=== PATIENT | female | born 1940 | race Caucasian/White ===

== ENCOUNTER 2018-02-02 09:10 | Day surgery (SDC) | payer MEDICARE, OTHER ==
[2018-01-30 15:06] LABS: BASOPHILS # (AUTO) 0.1 X10'3 (0-0.2); BASOPHILS % (AUTO) 1.2 % (0-1); EOSINOPHILS # (AUTO) 0.3 X10'3 (0-0.9); EOSINOPHILS % (AUTO) 4.2 % (0-6); LYMPHOCYTES % (AUTO) 31.8 % (21-51); MEAN CORPUSCULAR HEMOGLOBIN 26.1 PG (27.0-31.0); MEAN CORPUSCULAR HGB CONC 32.4 % (33.0-36.5); MEAN CORPUSCULAR VOLUME 80.7 FL (78-98); MEAN PLATELET VOLUME 10.1 FL (7.4-10.4); MONOCYTES # (AUTO) 0.6 X10'3 (0-0.9); MONOCYTES % (AUTO) 8.9 % (2-12); NEUTROPHILS # (AUTO) 3.4 X10'3 (1.8-7.7); NEUTROPHILS % (AUTO) 53.9 % (42-75); PRE OP HEMATOCRIT 37.2 % (35.0-45.0); PRE OP PLATELET COUNT 298 X10'3 (140-440); RED BLOOD COUNT 4.61 X10'6 (4.20-5.60); RED CELL DISTRIBUTION WIDTH 15.1 % (11.5-14.5)
[2018-01-30 15:12] LABS: PRE OP INR 1.3 INR; PRE OP PROTIME 13.4 SECONDS (9.0-12.0)
[2018-01-30 15:19] LABS: ALBUMIN 3.4 G/DL (3.4-5.0); ALBUMIN/GLOBULIN RATIO 0.8 (1.1-1.5); ALKALINE PHOSPHATASE 86 IU/L (46-116); BLOOD UREA NITROGEN 15 MG/DL (7-18); BUN/CREATININE RATIO 22.1 (6.6-38.0); CALCIUM 9.2 MG/DL (8.5-10.1); CHLORIDE 102 MMOL/L (99-107); CREATININE 0.68 MG/DL (0.40-0.90); PRE OP ALT 25 U/L (30-65); PRE OP ANION GAP 8 (8-16); PRE OP AST 26 U/L (10-37); PRE OP BILIRUB, TOTAL 0.3 MG/DL (0.0-1.0); PRE OP GLUCOSE 98 MG/DL (70-104); PRE OP POTASSIUM 3.8 MMOL/L (3.4-5.1); PRE OP SODIUM 137 MMOL/L (135-145); TOTAL CARBON DIOXIDE 27.5 MMOL/L (24-32); TOTAL PROTEIN 7.5 G/DL (6.4-8.2); eGFR 84 ML/MIN
[2018-01-30 15:25] LABS: HEMOGLOBIN A1C 7.2 % (4.5-6.2)
[2018-02-02] VITALS (7 sets, daily range): BP systolic 111–134; BP diastolic 58–85
[~2018-02-02] VITALS: Ht 165.1 cm; Wt 85.7 kg
[~2018-02-02 09:10] MED LIST: ALPR-624 PO; CHOL400T PO; Cefazolin 2GM/50ML dext iso,osmotic IVPB IV ONE; DABI150C PO; DILT120T PO; DULO-31 PO; ESTR0.5T PO; EZET10TA26 PO; FURO40TA4 PO; LISI10TA4 PO; LYR75C PO; METF500T PO; MONT10TA21 PO; MORP-64 PO; MORP30TA6 PO; MULT1TAB74 PO; OSC500T PO; PANT40TA4 PO; PER10325T PO; ROPI0.5T2 PO; ROSU40TA PO; TIOT4MIS3 INH; albuterol 2.5 MG/3 ML nebule NEB ONE; famotidine 20mg tablet PO ONE; ringers solution, lacted 1,000 ML IV SCH
[2018-02-02] MEDS ORDERED: BUPIVAcaine/PF 2.5mg/ml (0.25%) 10ml vial ONE (10:35)
[2018-02-02] MEDS ORDERED: LIDOcaine 0.5% (5mg/ml) 50ml vial ONE (11:03)
[2018-02-02] MEDS ORDERED: fentaNYL/PF 50MCG/1 ML 2ML syringe ONE ×2 (11:08→11:33)
[2018-02-02] MEDS ORDERED: midazolam 2 mg/2 ml injection ONE (11:09)
[2018-02-02] MEDS ORDERED: propofol inj 20 ML IV ONE (11:53)
[2018-02-02] MEDS ORDERED: metoprolol tartrate 1mg/ml inj IV ONE (11:53)
[2018-02-02] MEDS ORDERED: esmolol inj. 10 ML IV ONE (11:53)
[2018-02-02] MEDS ORDERED: flumazenil 0.1 mg/ml inj. IV ONE (11:59)
[2018-02-02] MEDS ORDERED: ringers solution, lacted 1,000 ML IV SCH (12:43)
[2018-02-02] MEDS ORDERED: morphine 4 MG/ML inj SYRINge IV PRN (12:45)
[2018-02-02] MEDS ORDERED: ondansetron/PF 4mg/2ml inj IV PRN (12:45)
== END 2018-02-02 12:40 | disposition home or self-care (01) ==
LOC: PAS 09:10
PROVIDERS: ATTEND Orthopaedic Surgery Hand Surgery
DX: G56.02 Carpal tunnel syndrome, left upper limb (principal); M65.341 Trigger finger, right ring finger; M72.0 Palmar fascial fibromatosis [Dupuytren]; E11.9 Type 2 diabetes mellitus without complications; I49.8 Other specified cardiac arrhythmias; I10 Essential (primary) hypertension; I48.91 Unspecified atrial fibrillation; J44.9 Chronic obstructive pulmonary disease, unspecified; G89.29 Other chronic pain; Z99.81 Dependence on supplemental oxygen; Z87.891 Personal history of nicotine dependence; Z96.641 Presence of right artificial hip joint; Z86.19 Personal history of other infectious and parasitic diseases; Z79.84 Long term (current) use of oral hypoglycemic drugs; Z96.653 Presence of artificial knee joint, bilateral; Z90.710 Acquired absence of both cervix and uterus; Z85.828 Personal history of other malignant neoplasm of skin; Z79.891 Long term (current) use of opiate analgesic; Z79.2 Long term (current) use of antibiotics; Z79.899 Other long term (current) drug therapy; Z98.890 Other specified postprocedural states
CPT/HCPCS: 26055; 26121; 36415; 64721; 71046; 80053; 82948; 83036; 85025; 85610; 85730; 93005; A6222; A6449; J0690; J2001; J2250; J2704; J3010; J3490; J7120